=== PATIENT | male | born 1995 | race Caucasian/White ===

== ENCOUNTER 2016-12-06 06:12 | Emergency (ER) | payer OTHER ==
[~2016-12-06] VITALS: Ht 180.3 cm; Wt 136.4 kg
[~2016-12-06 06:12] MED LIST: BENADRYL25 M2 PO; CEPHALEXIN500 M1 PO; INDOCIN50 MG PO; NO HOME MEDICATIONS; NORCO 325 MG-51 TAB PO; SUDAFED30 MG PO; TUSS PO; VOLTAREN 75 DR75 MG PO
[2016-12-06 06:16] VITALS: BP 168/94; PULSE 89; TEMP 97.4
== END 2016-12-06 07:36 | disposition home or self-care (01) ==
LOC: COL.ER 06:12
DX: M72.2 Plantar fascial fibromatosis (principal); W22.8XXA Striking against or struck by other objects, initial encounter

== ENCOUNTER 2016-12-09 02:16 | Emergency (ER) | payer OTHER ==
[~2016-12-09] VITALS: Ht 180.3 cm; Wt 136.4 kg
[2016-12-09 02:21] VITALS: BP 163/93; TEMP 98.3
[2016-12-09] MEDS ORDERED: NORCO 325 MG-51 TAB PO (02:58)
[2016-12-09] MEDS ORDERED: INDOCIN50 MG PO (03:01)
[2016-12-09 03:19] VITALS: PULSE 84
== END 2016-12-09 03:20 | disposition home or self-care (01) ==
LOC: COL.ER 02:16
DX: M79.672 Pain in left foot (principal); M72.2 Plantar fascial fibromatosis; Z86.39 Personal history of other endocrine, nutritional and metabolic disease

== ENCOUNTER 2017-05-04 23:18 | Emergency (ER) | payer OTHER ==
[~2017-05-04] VITALS: Ht 152.4 cm; Wt 136.4 kg
[2017-05-04 23:21] VITALS: TEMP 98
[2017-05-05 01:04] VITALS: BP 138/75; PULSE 88
== END 2017-05-05 01:05 | disposition home or self-care (01) ==
LOC: COL.ER 23:18
DX: S62.396A Other fracture of fifth metacarpal bone, right hand, initial encounter for closed fracture (principal); W20.8XXA Other cause of strike by thrown, projected or falling object, initial encounter; Y92.009 Unspecified place in unspecified non-institutional (private) residence as the place of occurrence of the external cause

== ENCOUNTER 2017-05-28 03:00 | Emergency (ER) | payer OTHER ==
[~2017-05-28] VITALS: Ht 180.3 cm; Wt 136.4 kg
[2017-05-28 03:03] VITALS: BP 141/75; TEMP 97.7
[2017-05-28 04:42] VITALS: PULSE 80
== END 2017-05-28 04:45 | disposition home or self-care (01) ==
LOC: COL.ER 03:00
DX: S62.396A Other fracture of fifth metacarpal bone, right hand, initial encounter for closed fracture (principal); W22.8XXA Striking against or struck by other objects, initial encounter; Y92.002 Bathroom of unspecified non-institutional (private) residence as the place of occurrence of the external cause

== ENCOUNTER 2017-09-29 07:41 | Emergency (ER) | payer OTHER ==
[~2017-09-29] VITALS: Ht 180.3 cm; Wt 136.4 kg
[2017-09-29 07:44] VITALS: TEMP 98.4
[2017-09-29] MEDS ORDERED: NORCO 325 MG-51 TAB PO (08:01)
[2017-09-29 08:03] VITALS: BP 154/87; PULSE 92
== END 2017-09-29 08:10 | disposition home or self-care (01) ==
LOC: COL.ER 07:41
DX: M10.9 Gout, unspecified (principal)

== ENCOUNTER 2017-11-14 02:26 | Emergency (ER) | payer OTHER ==
[~2017-11-14] VITALS: Ht 180.3 cm; Wt 125.0 kg
[2017-11-14] MEDS ORDERED: TAMIFLU 75MG75 MG PO (02:51)
[2017-11-14 03:50] VITALS: BP 135/83; TEMP 102.5
[2017-11-14 03:51] VITALS: PULSE 117
== END 2017-11-14 04:05 | disposition home or self-care (01) ==
LOC: COL.ER 02:26
DX: J11.1 Influenza due to unidentified influenza virus with other respiratory manifestations (principal)